=== PATIENT | male | born 1980 | race Caucasian/White ===

== ENCOUNTER 2024-03-03 10:26 | Emergency (ER) | payer MEDICAID ==
[~2024-03-03] VITALS: Ht 177.8 cm; Wt 100.0 kg
[2024-03-03 10:29] VITALS: BP 131/88; PULSE 118; TEMP 97.7; O2SAT 95
[2024-03-03 10:57] VITALS: RESP 16
[2024-03-03] MEDS ORDERED: 0.9126SP BOTHNARES (12:30)
[2024-03-03] MEDS ORDERED: HYDR-3686 PO (12:47)
== END 2024-03-03 12:48 | disposition home or self-care (01) ==
LOC: ER 10:27
DX: J22 Unspecified acute lower respiratory infection (principal); Z88.0 Allergy status to penicillin; Z20.822 Contact with and (suspected) exposure to COVID-19
CPT/HCPCS: 36415; 71045; 87811; 99283; 99284

== ENCOUNTER 2024-03-13 09:19 | Emergency (ER) | payer MEDICAID ==
[~2024-03-13] VITALS: Ht 177.8 cm; Wt 96.0 kg
[~2024-03-13 09:19] MED LIST: 0.9126SP BOTHNARES; HYDR-3686 PO
[2024-03-13 09:51] VITALS: BP 118/80; PULSE 103; O2SAT 97
[2024-03-13] MEDS: dexamethasone sod phosphate 10mg/ml inj IV STA (10:16)
[2024-03-13 10:20] VITALS: RESP 16
[2024-03-13] MEDS: ketorolac trometh 30MG/ML vial 30 MG/ML VIAL IV ONE (10:20)
[2024-03-13] MEDS: normal saline 1000ml 1,000 ML IV ONE (10:55)
[2024-03-13] MEDS ORDERED: PROM25TA14 PO (12:05)
[2024-03-13] MEDS ORDERED: PRED20TA PO (12:05)
[2024-03-13] MEDS ORDERED: AZIT250T PO (12:06)
[2024-03-13 12:21] VITALS: TEMP 98.2
== END 2024-03-13 12:25 | disposition home or self-care (01) ==
LOC: ER 09:20
DX: J22 Unspecified acute lower respiratory infection (principal); Z88.0 Allergy status to penicillin
CPT/HCPCS: 71045; 87502; 87503; 96360; 99284; J7030